=== PATIENT | male | born 1970 | race Caucasian/White ===

== ENCOUNTER 2017-11-10 11:34 | Emergency (ER) | payer SELFPAY ==
[~2017-11-10] VITALS: Ht 177.8 cm; Wt 81.0 kg
[2017-11-10 13:32] LABS: BASOPHILS % 0.5 % (0.0-2.0); HEMATOCRIT. 42.3 % (42.0-52.0); HEMOGLOBIN. 14.1 g/dL (14.0-18.0); LYMPHOCYTES % 12.3 % (20.0-50.0); MEAN CORPUSCULAR VOLUME 93.3 fL (80.0-94.0); MEAN PLATELET VOLUME 6.2 fl (7.4-10.4); MONOCYTES % 3.5 % (2.0-8.0); NEUTROPHILS % 82.7 % (40.0-76.0); PLATELET 431 x1000/uL (130-400); RED BLOOD CELL COUNT 4.54 mill/uL (4.7-6.1); RED CELL DISTRIBUTION WIDTH 15.6 % (11.6-14.6)
[2017-11-10 13:41] LABS: CLARITY URINE CLEAR (CLEAR); COLOR URINE YELLOW (YELLOW); KETONES URINE NEGATIVE (NEGATIVE); LEUKOCYTE ESTERASE URINE NEGATIVE (NEGATIVE); NITRITE URINE NEGATIVE (NEGATIVE); OCCULT BLOOD URINE NEGATIVE (NEGATIVE); PROTEIN URINE NEGATIVE (NEGATIVE); SPECIFIC GRAVITY URINE 1.017 (1.005-1.030); UROBILINOGEN URINE 0.2 E.U./dL (0.2-1.0)
[2017-11-10 13:44] LABS: CARBON DIOXIDE 25 mEq/L (21-32); CHLORIDE 106 mEq/L (98-107)
[2017-11-10 13:54] LABS: ETHANOL BLOOD 319 mg/dL
[2017-11-10 14:04] LABS: *AMPHETAMINES SCREEN URINE NEGATIVE (NEGATIVE); *BARBITURATES SCREEN URINE NEGATIVE (NEGATIVE); *BENZODIAZEPINES SCREEN URINE PRESUMTIVE POSITIVE (NEGATIVE); *COCAINE SCREEN URINE NEGATIVE (NEGATIVE); CANNABINOID URINE SCREEN PRESUMTIVE POSITIVE (NEGATIVE); METHADONE URINE SCREEN NEGATIVE (NEGATIVE); OPIATES URINE SCREEN NEGATIVE (NEGATIVE); PHENCYCLIDINE URINE SCREEN NEGATIVE (NEGATIVE)
[2017-11-10] MEDS ORDERED: LORAZEPAM 2MG/ML CPJ IV ONE (15:00)
[2017-11-10] MEDS ORDERED: KETOROLAC 30MG/ML VIAL IV ONE (15:00)
[2017-11-10] MEDS ORDERED: FOLIC ACID 1 MG, THIAMINE HCL 100 MG, MVI, ADULT NO.1 10 ML in DEXTROSE 5% WATER 1,000 ML IV ONE ×4 (15:00)
[2017-11-10] MEDS ORDERED: ONDANSETRON HCL 4MG/2ML VIAL IV ONE (15:00)
[2017-11-10] MEDS ORDERED: THIAMINE HCL 100 MG/1 ML 2ML VIAL ONE (15:16)
[2017-11-10] MEDS ORDERED: LEVETIRACETAM 500MG PREMIX 100 ML IV ONE (19:00)
[2017-11-10] MEDS ORDERED: LAMOTRIGINE 25MG TABLET PO SCH (23:30)
[2017-11-10] MEDS ORDERED: ARIPIPRAZOLE 5MG TABLET PO ONE (23:30)
[2017-11-10] MEDS ORDERED: ARIPIPRAZOLE 2MG TABLET PO NR (23:45)
[2017-11-11] MEDS ORDERED: LORAZEPAM 1MG TABLET PO ONE ×2 (05:45→10:30)
[2017-11-11 11:04] VITALS: BP 131/67
== END 2017-11-11 11:08 | disposition home or self-care (01) ==
LOC: ER 13:28
DX: F10.229 Alcohol dependence with intoxication, unspecified (principal); F17.200 Nicotine dependence, unspecified, uncomplicated; F12.10 Cannabis abuse, uncomplicated; Z59.0 Homelessness; Z88.5 Allergy status to narcotic agent; Z88.8 Allergy status to other drugs, medicaments and biological substances; Y90.8 Blood alcohol level of 240 mg/100 ml or more
CPT/HCPCS: 36415; 80053; 80305; 80307; 80329; 81003; 85025; 96365; 96366; 96367; 96375; 99285; G0482; J1885; J1953; J2060; J2405; J3411; J3490; J7070; Z7610